=== PATIENT | female | born 1935 | race Caucasian/White ===

== ENCOUNTER 2017-07-24 17:27 | Emergency (ER) | payer MEDICARE, OTHER ==
[~2017-07-24 17:27] MED LIST: ALTACE10 MG PO; DITROPAN5 MG PO; HCTZ12.5 MG PO; K-DUR20 MEQ PO; PREDNISONE5 MG PO; PRILOSEC20 MG PO; TOPROL XL 50 MG50 MG PO; XANAX0.25 MG PO; ZOCOR40 MG PO
[2017-07-24 20:11] LABS: ALBUMIN 2.4 g/dL (3.4-4.8); BILIRUBIN - TOTAL 0.6 mg/dL (0.1-1.0); CREATININE 1.7 mg/dL (0.5-1.0); GLOBULIN (CALCULATION) 2.7 g/dL (2.2-4.2); POTASSIUM 4.3 mmol/L (3.5-5.1); TOTAL PROTEIN 5.1 g/dL (6.4-8.3)
[2017-07-24 20:16] LABS: BASOPHIL 0.3 % (0-2); CKMB 2.55 ng/mL (0.97-4.94); EOSINOPHIL 0.1 % (0-7); HCT 26.5 % (37.0-47.0); LYMPHOCYTE 8.5 % (15-48); MCH 22.4 pg (25.0-31.0); MCHC 30.2 g/dL (32.0-36.0); MCV 74.2 fL (78.0-100.0); MONOCYTE 34.1 % (0-12); PLT 72 K/uL (150-400); RBC 3.57 M/uL (4.20-5.40); RDW 20.6 % (11.5-14.0)
[2017-07-24 20:18] LABS: TROPONIN T 0.148 ng/mL; WBC 38.4 K/uL (4.0-10.5)
[2017-07-24 20:38] LABS: INR 1.23 (0.9-1.2); PROTHROMBIN TIME 14.6 SECONDS (11.4-13.2)
[2017-07-24 20:51] LABS: LACTIC ACID 0.2 mmol/L (0.5-2.2)
[2017-07-24 22:18] LABS: BILIRUBIN 1+ mg/dL (NEGATIVE); BLOOD 3+ Ery/uL (NEGATIVE); CLARITY TURBID (CLEAR); COLOR YELLOW (YELLOW); GLUCOSE (U) NORMAL (NORMAL); KETONE (U) TRACE mg/dL (NEGATIVE); LEUKOCYTES 3+ Leu/uL (NEGATIVE); NITRITE NEGATIVE (NEGATIVE); PROTEIN 3+ mg/dL (NEGATIVE); pH 7.5 (5.0-9.0)
[2017-07-24 22:20] LABS: BACTERIA 3+; URINARY WBC TNTC
[2017-07-24 22:21] LABS: SQUAMOUS EPITHELIAL CELLS RARE
[2017-07-25 08:07] LABS: CREATININE 1.3 mg/dL (0.5-1.0); POTASSIUM 4.3 mmol/L (3.5-5.1)
== END 2017-07-25 16:07 | disposition other institution (70) ==
LOC: FER 17:27
PROVIDERS: Emergency Medicine; Internal Medicine
DX: E16.0 Drug-induced hypoglycemia without coma (principal); T50.905A Adverse effect of unspecified drugs, medicaments and biological substances, initial encounter; I95.9 Hypotension, unspecified; I12.9 Hypertensive chronic kidney disease with stage 1 through stage 4 chronic kidney disease, or unspecified chronic kidney disease; N18.9 Chronic kidney disease, unspecified; I25.10 Atherosclerotic heart disease of native coronary artery without angina pectoris; I25.2 Old myocardial infarction; J90 Pleural effusion, not elsewhere classified; Z82.49 Family history of ischemic heart disease and other diseases of the circulatory system
CPT/HCPCS: 36415; 70450; 71010; 80048; 80053; 81001; 82550; 82553; 83605; 83880; 84484; 85025; 85610; 85730; 87040; 87076; 87088; 87186; 93005; J2405